=== PATIENT | male | born 1990 | race Two or more races ===

== ENCOUNTER 2020-05-07 13:13 | Emergency (ER) | payer OTHER ==
[~2020-05-07] VITALS: Ht 172.7 cm; Wt 74.8 kg
[2020-05-07 13:27] VITALS: BP 127/88
--- NOTE | 2020-05-07 13:55 | NUR ---
Patient discharged to home in stable condition. Written and verbal after care instructions given. Patient verbalizes understanding of instruction. Pt ambulatory with a steady gait
--- NOTE | 2020-05-07 13:55 | NUR ---
COVID SWAB DONE AND SENT TO LAB
== END 2020-05-07 13:56 | disposition home or self-care (01) ==
LOC: ER 13:18
DX: Z20.828 Contact with and (suspected) exposure to other viral communicable diseases (principal)
CPT/HCPCS: 99283; C9803; U0003